=== PATIENT | female | born 1985 | race Caucasian/White ===

== ENCOUNTER → 2017-01-08 | Outpatient (CLI) | payer OTHER ==
[~2017-01-08] MED LIST: CITRACAL + D 311 TAB PO; MOTRIN 800 MG E4 TAB PO; PRENATAL1 TA1 PO; TRAMADOL HCL50 MG PO; ZANTAC 150150 MG PO; ZYRTEC5 MG PO
== END | disposition home or self-care (01) ==
LOC: CT 01-07 10:21
DX: J34.89 Other specified disorders of nose and nasal sinuses (principal)

== ENCOUNTER → 2017-01-21 | Outpatient (CLI) | payer OTHER | END | disposition home or self-care (01) | LOC: RAD 10:58 | DX: M47.897 Other spondylosis, lumbosacral region (principal); M53.3 Sacrococcygeal disorders, not elsewhere classified ==

== ENCOUNTER → 2023-03-31 | Outpatient (CLI) | payer OTHER | END | disposition home or self-care (01) | LOC: RAD 13:07 | PROVIDERS: ATTEND Nurse Practitioner Family | DX: S39.92XA Unspecified injury of lower back, initial encounter (principal); W19.XXXA Unspecified fall, initial encounter; Y93.89 Activity, other specified; Y92.89 Other specified places as the place of occurrence of the external cause; Y99.8 Other external cause status ==